=== PATIENT | male | born 1970 | race Two or more races ===

== ENCOUNTER 2024-06-04 16:06 | Emergency (ER) | payer OTHER, SELFPAY ==
[2024-06-04 16:13] VITALS: BP 169/88; PULSE 73; RESP 18; TEMP 36.8; O2SAT 98
--- NOTE | 2024-06-04 16:18 | ED_ITS ---
HPI - Head Injury General Time Seen by Provider: 16:18 Date Seen: 06/04/24 Chief complaint: Head Injury/Pain Stated complaint: Head lac-with wood at work Time Seen by Provider: 06/04/24 16:18 Source: patient, RN notes reviewed and stranding supervisor Mode of arrival: ambulatory Limitations: no limitations History of Present Illness HPI Narrative: This 54yo male is seen with the aid of the stranding supervisor, is coming in with a head injury. He was at work earlier, had a piece of wood hit him in the back of his head. This happened around 09-22 30 this morning. He is presenting after work but still within time frame for closure. He did not have any loss of consciousness. The area was sore and resolved with a dose of oral Tylenol. He states his tetanus is up-to-date within the last 5-6 years. He is having no pain now, there was no loss of consciousness, no neck pain. He has no other concerns about any other injury, no other painful areas. He did shower after coming home from work. Complaint: head injury Related Data Home Medications ?Medication ?Instructions ?Recorded ?Confirmed No Known Home Medications 06/04/24 06/04/24 Allergies Allergy/AdvReac Type Severity Reaction Status Date / Time No Known Drug Allergies Allergy Verified 06/04/24 16:16 Review of Systems Narrative: As per HPI. Exam Const: Vital Signs, click to edit/add: Vital Signs - 24 hr 06/04/24 16:13 Temperature 98.2 F Pulse Rate [Pulse Oximeter] 73 Respiratory Rate 18 Blood Pressure [Ri ght Upper Arm] 169/88 H Pulse Oximetry 98 Oxygen Delivery Me thod Room Air Is a very pleasant 54-year-old male that is ambulatory into the ED of his own accord. Face atraumatic. On the left occipital area he has a semi circular laceration about 2.5 cm in length. There is no active bleeding. The surrounding skin has some mild swelling but there is no bleeding. The wound is very clean, likely from a showering. Patient consent was obtained for closure with sabine. 5 mL of lidocaine 1% with epinephrine was used for local anesthesia. Eleven sabine were placed along the wound edges with good closure. No bleeding observed. Patient tolerated this well. Documenting provider has reviewed patient's vital signs: yes Course Vital Signs Vital signs: Initial Vital Signs Temperature 98.2 F 07/24/24 16:13 Temperature Source Temporal Artery Scan 06/04/24 16:13 Pulse Rate 73 06/04/24 16:13 Respiratory Rate 18 06/04/24 16:13 Blood Pressure 169/88 H 06/04/24 16:13 Blood Pressure Mean 115 H 06/04/24 16:13 Blood Pressure Position Sitting 06/04/24 16:13 Pulse Oximetry 98 06/04/24 16:13 Oxygen Delivery Method Room Air 06/04/24 16:13 Vital Signs Temperature 98.2 F 06/04/24 16:13 Pulse Rate 73 06/04/24 16:13 Respiratory Rate 18 06/04/24 16:13 Blood Pressure 169/88 H 06/04/24 16:13 Pulse Oximetry 98 06/04/24 16:13 Oxygen Delivery Method Room Air 06/04/24 16:13 Temperature 98.2 F 06/04/24 16:13 Pulse Rate 73 06/04/24 16:13 Respiratory Rate 18 06/04/24 16:13 Blood Pressure 169/88 H 06/04/24 16:13 Pulse Oximetry 98 06/04/24 16:13 Oxygen Delivery Method Room Air 06/04/24 16:13 Discharge Plan Discharge Clinical Impression: Laceration of occipital scalp Qualifiers: Encounter type: initial encounter Qualified Code(s): S01.01XA - Laceration without foreign body of scalp, initial encounter Patient Disposition: Home, Self-Care Condition: Stable Instructions: Laceration (ED), Staple Care (ED) Additional Instructions: May need to put some type of coverage or a towel down tonight as this may have some drainage, do not want blood testing your pillow cases. May shower as usual but be careful to not disrupt the sabine with showering your hair or coming your hair. Need to schedule a clinic follow-up in about 1 weeks time to assess the wound for staple removal. If there is concern for infection such as increasing swelling, redness, increasing pain or associated fever, any purulent drainage, do need to be re-evaluated. Fine to use some Tylenol per bottle directions if needed for mild discomfort. If you develop severe discomfort at the site her severe headache, do recommend re-evaluation. Activity Level: Activity as Tolerated Prescriptions: No Action No Known Home Medications Stand Alone Forms: [employer] Info Instructions
== END 2024-06-04 17:47 | disposition home or self-care (01) ==
LOC: ED 17:28
PROVIDERS: Emergency Provider Family Medicine
DX: S01.01XA Laceration without foreign body of scalp, initial encounter (principal); W22.8XXA Striking against or struck by other objects, initial encounter; Y99.0 Civilian activity done for income or pay
CPT/HCPCS: 12001; 99283

== ENCOUNTER 2025-11-01 11:15 | Emergency (ER) | payer OTHER, SELFPAY ==
--- OUTSIDE RECORDS SUMMARY | 2025-11-01 11:17 | XMS_ITS | Clinical Summary ---
Author Organization [facility] Address [address] [place] [id number] Care Team Providers Care Automatic Driller And Reamer Name Role Phone Other-None Primary Care Provider Unavailabl e Allergies No known active allergies Medications MedicationSigDispense QuantityRefillsLast FilledStart DateEnd DateStatus meclizine (ANTIVERT) 12.5 mg tablet Indications:DizzinessTake 1 tablet by mouth 3 times daily if needed for Vertigo. Instructions in sudanese please 60 tablet ctive omeprazole (PRILOSEC) 40 mg Delayed-Release capsule Indications:Abdominal pain, epigastricTake 1 Capsule (40 mg) by mouth once daily before a meal. 90 Capsule 5Active Active Problems No known active problems Encounters DateTypeDepartmentCare QaxlFhrvxhndtcb90/01/2025Telephone [facility] [address] [place] [address] Jacky Kim DO Arhhefi2810/09/2025 1:15 PM CSTOffice Visit [facility] [address] [place] [address] Jacky Kim DO Abdominal Pain (Pain after eating, stomach feels swollen ; currently trying more of bland diet and still happening. - about a month/Was taking a liver detox and cleanse to try and help but increase the pain)10/09/2025Travelfrom Last 3 Months Immunizations ImmunizationAdministration DatesNext DueAMB Influenza, IIV4 PF (=>6 mos Flulaval,Fluzone Fluarix)(Flu Clinic Only)09/21/2014 Social History Tobacco UseTypesPacks/DayYears UsedDateSmoking Tobacco: NeverSmokeless Tobacco: Never Tobacco Cessation:Counseling Given: Not Answered Alcohol UseStandard Drinks/WeekCommentsYes2 (1 standard drink = 0.6 oz pure alcohol)Social ConnectionsAnswerDate RecordedDo you often feel lonely or isolated from those around you?Financial Resource StrainAnswerDate RecordedDifficulty of Paying Living Etwpctpn479/28/2025Difficulty of Paying Living Ecwxoops445/28/2025Food InsecurityAnswerDate RecordedDo you worry your food will run out before you are able to buy more?Transportation NeedsAnswerDate RecordedDoes lack of transportation keep you from medical appointments?Does lack of transportation keep you from work, meetings or getting things that you need?Housing StabilityAnswerDate Recorded What is your housing situation today?UtilitiesAnswerDate RecordedDo you have trouble paying for utilities (for example, heat, electricity, water, phone)?Sex and Gender InformationValueDate RecordedSex Assigned at BirthNot on fileLegal YprGvtz9811/25/2012 7:38 AM CSTGender IdentityNot on file Sexual OrientationNot on file Last Filed Vital Signs Vital SignReadingTime TakenCommentsBlood Lamixcfp684/8510/09/2025 1:16 PM ORTHOPEDIC DENTIST Kpses996510/09/2025 1:16 PM SJMQfgawnlhxbz66.6 ??C (97.9 ??F)08/30/2015 11:59 AM CDTRespiratory Rate--Oxygen Ufneqjgkwc266%10/09/2025 1:16 PM CSTInhaled Oxygen Concentration--Atfyqg90.1 kg (150 lb 1.6 oz)10/09/2025 1:16 PM ZFWBcsqkw830.6 cm (5' 4)11/04/2013 10:08 AM CSTBody Mass Index-- Plan of Treatment Health MaintenanceDue DateLast DoneCommentsTetanus oylkkil1006/04/1979Depression screening for age 12+1980HIV for age 15-BMI (ht and wt on same day) for age 18+1986Hepatitis C screening for age 18-Hepatitis B series for 19+ (1 of 3 - 19+ 3-dose series)1987Colonoscopy through age Lipids for age 45-Pneumococcal series for age 50+ (1 of 1 - PCV)2018Zoster (shingles) series for age 50+ (1 of 2)2018COVID- 19 vaccine series ( season)501/03/2023, 04/07/2021, 03/10/2021Influenza Vaccine (#1)RSV vaccine for adults or (1 - 1-dose 75+ series)2043 Goals GoalPatient Goal TypeAssociated ProblemsRecent ProgressPatient-Stated?Author BLOOD PRESSURE-MAINTAINS BP LESS THAN 130/80 Blood PressureNoJess Fine Procedures Procedure NamePriorityDate/TimeAssociated DiagnosisCommentsPSA TOTALRoutine 10/09/2025 1:47 PM ORTHOPEDIC DENTIST BPH with urinary obstruction COMP METABOLIC OVNWUCxqgtbv54/28/2025 1:47 PM ORTHOPEDIC DENTIST Abdominal pain, epigastric NSGBXLMaregjx09/28/2025 1:47 PM ORTHOPEDIC DENTIST Abdominal pain, epigastric from Last 3 Months Results * PSA TOTAL (DIAG OR SCREEN) (10/09/2025 1:47 PM ORTHOPEDIC DENTIST)ComponentValueRef RangeTest MethodAnalysis TimePerformed AtPathologist SignaturePSA, TOTAL1.81< OR = 4.00 ng/mL10/10/2025 4:11 AM CSTQUEST DIAGNOSTICSComment: The total PSA value from this assay system is standardized against the WHO standard. The test result will be approximately 20% lower when compared to the equimolar-standardized total PSA (Rasheed Karla). Comparison of serial PSA results should be interpreted with this fact in mind. This test was performed using the Siemens chemiluminescent method. Values obtained from different assay methods cannot be used interchangeably. PSA levels, regardless of value, should not be interpreted as absolute evidence of the presence or absence of disease. Specimen (Source)Anatomical Location / LateralityCollection Method / Volume Collection TimeReceived TimeBloodBLOOD SPECIMEN / UnknownQuest Collect / Unknown 10/09/2025 1:47 PM CST10/09/2025 1:47 PM ORTHOPEDIC DENTIST Narrative Authorizing ProviderResult TypeResult StatusAdei Judy DOCHEMISTRYFinal Result Performing OrganizationAddressCity/State/ZIP CodePhone Number [facility] [address] [place] [address], [place] [phone] * LIPASE (10/09/2025 1:47 PM ORTHOPEDIC DENTIST)ComponentValueRef RangeTest MethodAnalysis Time Performed AtPathologist KqnuybywgFZDSUV270 - 60 U/L112/10/2024 4:15 AM CSTQUEST DIAGNOSTICSSpecimen (Source)Anatomical Location / LateralityCollection Method / VolumeCollection TimeReceived TimeBloodBLOOD SPECIMEN / UnknownQuest Collect / Zebcerg4810/09/2025 1:47 PM CST10/09/2025 1:47 PM ORTHOPEDIC DENTIST Narrative Authorizing ProviderResult TypeResult StatusLeilanii Judy DOCHEMISTRYFinal Result Performing OrganizationAddressCity/State/ZIP CodePhone Number [facility] [place] [address] [place] [address], [place] [phone] * (ABNORMAL) COMP METABOLIC PANEL (10/09/2025 1:47 PM ORTHOPEDIC DENTIST)ComponentValueRef RangeTest MethodAnalysis TimePerformed AtPathologist [id number] - 146 mmol/L112/10/2024 4:15 AM CSTQUEST DIAGNOSTICSPOTASSIUM4.63.5 - 5.3 mmol/L 10/10/2025 4:15 AM CSTQUEST DIZDSPTCIWYSMOSSVIF88833 - 110 mmol/L112/10/2024 4:15 AM CSTQUEST DIAGNOSTICSCARBON VVUHMQU5715 - 32 mmol/L112/10/2024 4:15 AM CSTQUEST RHWWCRWOXQLBGKXQPT086(H)65 - 99 mg/dL10/10/2025 4:15 AM CSTQUEST DIAGNOSTICSComment: ? Fasting reference interval For someone without known diabetes, a glucose value between 100 and 125 mg/dL is consistent with prediabetes and should be confirmed with a follow-up test. CALCIUM8.2(L)8.6 - 10.3 mg/dL10/10/2025 4:15 AM CSTQUEST DIAGNOSTICSCREATININE 0.990.70 - 1.30 mg/dL10/10/2025 4:15 AM CSTQUEST DIAGNOSTICSBUN/CREATININE RATIO SEE NOTE: (calc)10/10/2025 4:15 AM CSTQUEST DIAGNOSTICSComment: ?? Not Reported: BUN and Creatinine are within ?? reference range. ? EGFR89> OR = 60 mL/min/1.96e19610/10/2025 4:15 AM CSTQUEST DIAGNOSTICSALBUMIN3.9 3.6 - 5.1 g/dL10/10/2025 4:15 AM CSTQUEST DIAGNOSTICSPROTEIN, TOTAL6.76.1 - 8.1 g/dL10/10/2025 4:15 AM CSTQUEST DIAGNOSTICSBILIRUBIN, TOTAL0.30.2 - 1.2 mg/dL 10/10/2025 4:15 AM CSTQUEST DIAGNOSTICSALKALINE XOGQYCXSNTC68649 - 144 U/L 10/10/2025 4:15 AM CSTQUEST IMXOBGTCRWVOOU492 - 46 U/L112/10/2024 4:15 AM ORTHOPEDIC DENTIST [facility] FPPCDFZEFZXVQP1904 - 35 U/L112/10/2024 4:15 AM CSTQUEST DIAGNOSTICSUREA NITROGEN (BUN)157 - 25 mg/dL10/10/2025 4:15 AM CSTQUEST DIAGNOSTICSGLOBULIN2.8 1.9 - 3.7 g/dL (calc)10/10/2025 4:15 AM CSTQUEST DIAGNOSTICSALBUMIN/GLOBULIN RATIO1.41.0 - 2.5 (calc)10/10/2025 4:15 AM CSTQUEST DIAGNOSTICSSpecimen (Source) Anatomical Location / LateralityCollection Method / VolumeCollection Time Received TimeBloodBLOOD SPECIMEN / UnknownQuest Collect / Fxyegew7610/09/2025 1:47 PM CST10/09/2025 1:47 PM ORTHOPEDIC DENTIST Narrative Authorizing ProviderResult TypeResult StatusAdei Judy DOCHEMISTRYFinal Result Performing OrganizationAddressCity/State/ZIP CodePhone Number [facility] [place] [address], [place] [phone] from Last 3 Months Care Teams Team MemberRelationshipSpecialtyStart DateEnd Date Other-None . PCP - General06/09/09
[2025-11-01 11:53] VITALS: BP 155/91; PULSE 67; RESP 20; TEMP 36.8; O2SAT 99; BMI 25.0
--- NOTE | 2025-11-01 13:07 | ED.DENTAL ---
HPI - Dental/Oral General Chief complaint: Dental/Oral/Mouth Injury/Pain Stated complaint: Abdominal pain Time Seen by Provider: 11/01/25 12:45 History of Present Illness HPI Narrative: Patient is a 55-year-old gentleman who unfortunately has thrush. He was recently placed on proton pump inhibitor and now is white tongue and white patches on his begin mucosa. He has significant dry mouth as well as some mild discomfort. No signs of esophagitis or related symptoms. He did have dyspepsia and the omeprazole is helping with that significantly. No other complaints or concerns. Discomfort is moderate and has been present for the last 3-4 days. Related Data Home Medications ?Medication ?Instructions ?Recorded ?Confirmed omeprazole 40 mg capsule,delayed 40 mg PO DAILY 11/01/25 11/01/25 release Previous Rx's ?Medication ?Instructions ?Recorded nystatin 100,000 unit/mL oral 1 ml PO QID 7 days #28 mL 11/01/25 suspension omeprazole 40 mg capsule,delayed 40 mg PO DAILY #30 caps 11/01/25 release Allergies Allergy/AdvReac Type Severity Reaction Status Date / Time No Known Drug Allergies Allergy Verified 11/01/25 12:00 Review of Systems Status of ROS: Reports: 10 or more systems reviewed and unremarkable except as noted in History and below Exam Narrative: Exam Narrative: EXAM GENERAL: Patient appears comfortable and well. Obvious thrush noted with patchy white on the tongue and oral mucosa. SKIN: Visible skin seen during exam normal or with benign process only. EXT: No dependent lower extremity pedal edema. HEART: Regular rate and rhythm with no murmurs, rubs, or gallops. LUNGS: Clear to auscultation bilaterally with no crackles or wheezes. ABD: Soft, non tender, non distended. PSYCH: Good eye contact, speech is not pressured. Const: Vital Signs, click to edit/add: Vital Signs - 24 hr 11/01/25 11:53 Temperature 98.2 F Pulse Rate [Pulse Oximeter] 67 Respiratory Rate 20 Blood Pressure [Ri ght Upper Arm] 155/91 H Pulse Oximetry 99 Oxygen Delivery Me thod Room Air Course Course ED Course: Patient seen and examined. Vital Signs Vital signs: Initial Vital Signs Temperature 98.2 F 11/01/25 11:53 Temperature Source Temporal Artery Scan 11/01/25 11:53 Pulse Rate 67 11/01/25 11:53 Pulse Rhythm Regular 11/01/25 11:53 Respiratory Rate 20 11/01/25 11:53 Blood Pressure 155/91 H 11/01/25 11:53 Blood Pressure Mean 112 H 11/01/25 11:53 Blood Pressure Position Sitting 11/01/25 11:53 Pulse Oximetry 99 11/01/25 11:53 Oxygen Delivery Method Room Air 11/01/25 11:53 Vital Signs Temperature 98.2 F 11/01/25 11:53 Pulse Rate 67 11/01/25 11:53 Respiratory Rate 20 11/01/25 11:53 Blood Pressure 155/91 H 11/01/25 11:53 Pulse Oximetry 99 11/01/25 11:53 Oxygen Delivery Method Room Air 11/01/25 11:53 Temperature 98.2 F 11/01/25 11:53 Pulse Rate 67 11/01/25 11:53 Respiratory Rate 20 11/01/25 11:53 Blood Pressure 155/91 H 11/01/25 11:53 Pulse Oximetry 99 11/01/25 11:53 Oxygen Delivery Method Room Air 11/01/25 11:53 MDM - Dental/Oral MDM Narrative Medical decision making narrative: Patient seen examined is found have thrush. I did place him on nystatin swish and spit and recommended good oral care. He will continue his omeprazole and follow-up with his primary physician as needed. Discharge Plan Discharge Clinical Impression: Oral thrush Patient Disposition: Home, Self-Care Condition: Stable Instructions: Oral Candidiasis (ED) Additional Instructions: Medications as directed Follow-up with your doctor Activity Level: No Restrictions Discharge Diet: Regular Prescriptions: New nystatin 100,000 unit/mL suspension 1 ml PO QID 7 Days Qty: 28 0RF Rx Instructions: administer 1/2 of dose in each side of the mouth omeprazole 40 mg capsule,delayed release(DR/EC) 40 mg PO DAILY Qty: 30 2RF No Action omeprazole 40 mg capsule,delayed release(DR/EC) 40 mg PO DAILY Follow Up/Referrals: Provider,Not a Local [Primary Care Provider, Family Practice] Stand Alone Forms: [employer] Info Instructions
== END 2025-11-01 13:28 | disposition home or self-care (01) ==
LOC: ED 13:16
PROVIDERS: Emergency Provider Internal Medicine
DX: B37.0 Candidal stomatitis (principal)
CPT/HCPCS: 99283